=== PATIENT | male | born 1965 | race African-American/Black ===

== ENCOUNTER → 2016-05-28 | Outpatient (CLI) | payer OTHER ==
[2016-05-28 13:42] LABS: BASOPHIL# 0.1 X10e3 (0-0.3); DIFF IND NO; EOSINOPHIL# 0.3 X10e3 (0-0.7); EOSINOPHIL% 4.6 % (0.0-7.0); HEMATOCRIT 32.8 % (38.0-50.0); HEMOGLOBIN 10.6 gm/dL (13.0-16.0); LYMPHOCYTE# 2.1 X10e3 (1.0-3.5); LYMPHOCYTE% 36.2 % (17.0-45.0); MEAN CELL VOLUME 86.5 FL (83-96); MEAN CORPUSCULAR HGB CONC 32.4 g/dL (30-36); MEAN PLATELET VOLUME 7.6 FL (6.5-11.5); MONOCYTE# 0.4 X10e3 (0-1.0); MONOCYTE% 7.3 % (3.0-12.0); NEUTROPHIL# 2.9 X10e3 (1.5-7.1); NEUTROPHIL% 50.9 % (40-75); PLATELET COUNT 232 X10e3 (140-420); RED BLOOD COUNT 3.79 X10e (3.90-5.60); RED CELL DISTRIBUTION WIDTH 14.4 % (11.0-15.5); WHITE BLOOD COUNT 5.8 X10e3 (4.0-10.5)
[2016-05-28 14:16] LABS: ALBUMIN SERUM 3.1 g/dL (3.5-5.0); BILIRUBIN,TOTAL 0.7 mg/dL (0.2-2.0); BUN/CREATININE RATIO 9.36; CALCIUM SERUM 8.9 mg/dL (8.4-10.2); CREATININE SERUM 4.7 mg/dL (0.6-1.4); GLOM FILT RATE Estimated 16.9 mL/min (>60); POTASSIUM 5.4 mmol/L (3.5-5.1); PROTEIN TOTAL SERUM 6.5 g/dL (6.0-8.3)
[2016-05-28 14:46] LABS: FOLATE (FOLIC ACID) 7.3 ng/mL (>5.8)
[2016-05-29 23:28] LABS: MICROALB UR (PNL) 191.6 mg/dL (***)
== END | disposition home or self-care (01) ==
LOC: CLAB 12:57
PROVIDERS: Nurse Practitioner
DX: I12.9 Hypertensive chronic kidney disease with stage 1 through stage 4 chronic kidney disease, or unspecified chronic kidney disease (principal); N18.9 Chronic kidney disease, unspecified; Z13.1 Encounter for screening for diabetes mellitus; Z13.6 Encounter for screening for cardiovascular disorders
CPT/HCPCS: 36415; 80053; 80061; 82043; 82570; 82607; 82746; 83036; 84443; 85025